=== PATIENT | female | born 1960 | race Caucasian/White ===

== ENCOUNTER 2016-10-07 09:42 | Emergency (ER) | payer OTHER ==
[~2016-10-07] VITALS: Ht 162.6 cm; Wt 81.2 kg
[~2016-10-07 09:42] MED LIST: ALER-CAP25 M1 PO; AMITRIPTYLINE H25 MG PO; ANTIVERT25 MG PO; ASPIRIN325 MG PO; CEFUROXIME500 MG PO; COQ10 SG 100 S1 EACH PO; CYCLOBENZAPRINE10 M1 PO; CYCLOBENZAPRINE10 MG PO; DECADRON4 MG PO; DILANTIN100 MG PO; ELAVIL25 MG PO; FLONASE16 G1 IH; FLOVENT DISKUS1 DIS1 IH; FLOVENT IH; Flovent 110 mcg IH; GLUCOSAMINE &1 EACH PO; KEPPRA250 M1 PO; KLOR-CON M1010 MEQ PO; LEVOCETIRIZINE D5 MG PO; Lasix PO; Levothroid,Synthroid PO; Lopressor PO; MAGNESIUM250 M1 PO; NASONEX17 GM NS; NORCO 5/3251 TABLET PO; Ocean Nasal 0.65% NS; Osteo-Biflex,Flex-A- PO; POTASSIUM20 MEQ/11 PO; PREDNISONE10 MG PO; PRINIVIL10 MG PO; PROAIR HFA8.5 GM IH; PROAIR IH; RHINOCORT AQUA8.6 G1 IH; RITALIN10 MG PO; SENOKOT S,PE1 TABLET PO; SINGULAIR10 MG PO; SYMMETREL100 M2 PO; TOPROL XL6.25 MG PO; Tylenol Regular Stre PO; XYZAL5 MG PO
[2016-10-07 13:59] VITALS: BP 172/103
== END 2016-10-07 14:01 | disposition home or self-care (01) ==
LOC: EME 09:42 → RME 09:42
DX: S16.1XXA Strain of muscle, fascia and tendon at neck level, initial encounter (principal); M25.512 Pain in left shoulder; M79.605 Pain in left leg; X50.9XXA Other and unspecified overexertion or strenuous movements or postures, initial encounter; G89.29 Other chronic pain; J45.909 Unspecified asthma, uncomplicated; Z79.52 Long term (current) use of systemic steroids
CPT/HCPCS: 72040; 99281; 99284

== ENCOUNTER 2018-05-28 14:49 | Emergency (ER) | payer OTHER ==
[~2018-05-28] VITALS: Ht 160 cm; Wt 68.2 kg
[2018-05-28 16:03] LABS: CHLORIDE 104 mEq/L (99-109); POTASSIUM 4.7 mEq/L (3.7-5.4); SODIUM 141 mEq/L (136-147)
[2018-05-28 16:05] LABS: GLUCOSE 116 mg/dL (70-99)
[2018-05-28 16:09] LABS: CREATININE 0.9 mg/dL (0.6-1.3); GFR ESTIMATE (CALCULATED) > 59 mL/min/
[2018-05-28 16:10] LABS: UREA NITROGEN (BUN) 21 mg/dL (9-23)
[2018-05-28 16:15] LABS: TROP-I INTERPRETATION NEGATIVE; TROPONIN-I < 0.01 ng/mL (0.0-0.30)
[2018-05-28 16:47] LABS: BASOPHIL (%) 0.4 % (0-1); EOSINOPHIL (%) 0.8 % (0-5); EOSINOPHIL COUNT 0.1 K/uL (0-0.3); HEMATOCRIT 40.3 % (36.0-46.0); HEMOGLOBIN 13.1 G/DL (11.9-15.5); IMMATURE GRANULOCYTE (%) 0.8 % (0.0-0.7); LYMPHOCYTE (%) 22.1 % (15-42); LYMPHOCYTE COUNT 2.3 K/uL (1.0-2.8); MCH 29.8 PG (29.0-34.0); MCHC 32.5 G/DL (30.0-36.0); MCV 91.6 FL (83-99); MONOCYTE (%) 6.2 % (3-12); MONOCYTE COUNT 0.6 K/uL (0-0.8); NEUTROPHIL (%) 69.7 % (45-76); NEUTROPHIL COUNT 7.3 K/uL (1.8-6.4); PLATELET COUNT 289 K/uL (156-360); RBC DIS.WIDTH-CV 13.2 % (11.8-14.6); RBC DIS.WIDTH-SD 44.8 % (39-53); WHITE BLOOD COUNT 10.4 K/uL (4.1-10.2)
[2018-05-28] MEDS ORDERED: LIDODERM 5% P1 PATCH TD (16:51)
[2018-05-28] MEDS ORDERED: MOBIC7.5 MG PO (16:51)
[2018-05-28] MEDS ORDERED: NORCO 5/3251 TABLET PO (16:51)
[2018-05-28 17:08] VITALS: BP 154/87
== END 2018-05-28 17:09 | disposition home or self-care (01) ==
LOC: EME 14:49
PROVIDERS: Nurse Practitioner Family
DX: M54.6 Pain in thoracic spine (principal); J45.909 Unspecified asthma, uncomplicated; E11.9 Type 2 diabetes mellitus without complications; M19.90 Unspecified osteoarthritis, unspecified site; Z98.1 Arthrodesis status; Z88.6 Allergy status to analgesic agent; Z88.2 Allergy status to sulfonamides; Z88.5 Allergy status to narcotic agent; Z88.1 Allergy status to other antibiotic agents; Z88.8 Allergy status to other drugs, medicaments and biological substances; Z91.040 Latex allergy status
CPT/HCPCS: 71046; 80048; 84484; 85025; 85379; 93005; 99281; 99283